=== PATIENT | male | born 1955 | race Caucasian/White ===

== ENCOUNTER → 2020-04-12 12:08 | Outpatient (CLI) | payer MEDICARE, SELFPAY ==
[2020-04-12 12:25] LABS: Basophils % 0.8 % (0.1-2.0); Eosinophils # 0.1 K/mm3 (0.0-0.4); Eosinophils % 2.2 % (0.1-12.0); Hematocrit 42.6 % (42.0-52.0); Lymphocytes # 1.1 K/mm3 (0.7-4.5); Lymphocytes % 21.5 % (10-50); Mean Corpuscular HGB Conc 35.3 g/dL (31.8-35.4); Mean Corpuscular Hemoglobin 31.5 pg (27.0-31.2); Mean Corpuscular Volume 89.2 fl (80-94); Mean Platelet Volume 8.2 fl (7.4-10.4); Monocytes # 0.3 K/mm3 (0.1-1.0); Monocytes % 6.3 % (1.7-9.3); Neutrophils # 3.4 K/mm3 (1.8-7.8); Neutrophils % 69.3 % (37.0-80.0); Platelet Count 152 K/mm3 (142-424); Red Blood Count 4.77 M/mm3 (4.60-6.20); Red Cell Distribution Width 13.7 % (11.5-17.5)
[2020-04-12 13:22] LABS: Alanine Aminotransferase 44 U/L (12-78); Albumin Level 4.3 g/dl (3.5-5.0); Albumin/Globulin Ratio 1.7 (1.1-1.8); Alkaline Phosphatase 84 U/L (38-126); Anion Gap 14.3 mEq/L (5-15); Aspartate Amino Transferase 39 U/L (17-59); Bilirubin,Total 0.5 mg/dl (0.2-1.3); Blood Urea Nitrogen 17 mg/dl (9-20); Calcium 9.7 mg/dl (8.4-10.2); Carbon Dioxide 30 mmol/L (22.0-30.0); Chloride 100 mmol/L (98-107); Estimated Glomerular Filt Rate 97 ml/min (>60); GFR (African American) 117 ML/MIN (>60); Globulin 2.6 g/dL (1.3-3.2); Glucose 132 mg/dl (74-100); Potassium 3.3 mmoL/L (3.5-5.1); Sodium 141 mmol/L (136-145); Total Protein,Serum 6.9 g/dl (6.3-8.2)
[2020-04-12 13:27] LABS: C-Reactive Protein 1.6 mg/L (0-4)
[2020-04-12 13:34] LABS: Intact Parathyroid Hormone 52.8 pg/mL (7.5-53.5)
[2020-04-12 13:38] LABS: 25-OH Vitamin D, Total 25.1 ng/mL (30-100)
[2020-04-12 13:39] LABS: Erythrocyte Sedimentation Rate 19 mm/hr (0-20)
[2020-04-12 13:53] LABS: Thyroid Stimulating Hormone 1.46 uIU/mL (0.465-4.68)
== END ==
PROVIDERS: Visit Provider Internal Medicine
DX: E83.52 Hypercalcemia (principal); E55.9 Vitamin D deficiency, unspecified; L40.9 Psoriasis, unspecified; M19.049 Primary osteoarthritis, unspecified hand
CPT/HCPCS: 36415; 80053; 82306; 83970; 84443; 85025; 85651; 86140

== ENCOUNTER → 2020-12-04 14:20 | Outpatient (CLI) | payer OTHER, SELFPAY ==
--- NOTE | 2020-12-04 14:29 | XR_ITS ---
PROCEDURE: XR CHEST 2V CLINICAL HISTORY: COUGH COMPARISON: No exams were available for comparison FINDINGS: The cardiomediastinal silhouette and pulmonary vascularity are within normal limits. The lungs are clear without infiltrates, suspicious nodules, or pleural effusions. Minimal fibrotic changes are present in the right midlung versus thickening of the minor fissure. Calcified nodes are present in the subcarinal region. There are mild degenerative changes in the thoracic. There is a bone plate over lower cervical spine. IMPRESSION: No acute findings. Dictated by: Brice Haji MD 12/05/2020 13:14 Brice Haji MD in [place] 12/05/2020 13:14
== END ==
PROVIDERS: PCP Family Medicine; Visit Provider Family Medicine
DX: R05 Cough (principal)
CPT/HCPCS: 71046

== ENCOUNTER → 2021-10-08 14:58 | Outpatient (CLI) | payer MEDICARE, SELFPAY ==
--- NOTE | 2021-10-08 14:58 | CT_ITS ---
FINAL REPORT TECHNIQUE: Thin section axial CT images of the facial bones and sinuses were obtained without contrast. Coronal reformatted images were also obtained.This study was performed with techniques to keep radiation doses as low as reasonably achievable, (ALARA). Individualized dose reduction techniques using automated exposure control or adjustment of mA and/or kV according to the patient''''s size were employed. CLINICAL HISTORY: sinus pain/pressure, deviated septum FINDINGS: There is no evidence of mucosal thickening. No fluid levels are identified. The ostiomeatal units have an unremarkable appearance. There is a left clarissa bullosa. There is mild leftward nasal septal deviation. No fracture or acute bony abnormality is identified. IMPRESSION: No focal abnormality identified of the sinuses. Reviewed, Interpreted and Dictated by Valentín Victor III, MD Transcribed by Yasemin Rowland Authenticated by Valentín Victor III, MD on 10/08/2021 04:47:03 PM [facility]
== END ==
PROVIDERS: PCP Family Medicine; Visit Provider Otolaryngology
DX: J34.2 Deviated nasal septum (principal)
CPT/HCPCS: 70486

== ENCOUNTER → 2021-12-11 10:10 | Outpatient (CLI) | payer MEDICARE, SELFPAY ==
[2021-12-11 10:53] LABS: Calcium 9.2 mg/dl (8.4-10.2)
[2021-12-11 11:31] LABS: Intact Parathyroid Hormone 32.4 pg/mL (7.5-53.5)
== END ==
PROVIDERS: Visit Provider Otolaryngology
DX: R89.9 Unspecified abnormal finding in specimens from other organs, systems and tissues (principal)
CPT/HCPCS: 36415; 82310; 83970

== ENCOUNTER → 2022-04-18 09:13 | Outpatient (CLI) | payer MEDICARE, SELFPAY ==
--- NOTE | 2022-04-18 | CA_ITS ---
APPROVED REPORT Exam: Exercise Treadmill Technologist: Yoselin Alvarse, Ht: 5 ft 11 in Wt: 195 lbs BSA: 2.09 m2 HR: 64 bpm BP: 140/81 mmHg Rhythm: NSR Medical History Medical History: HTN, Hyperlipidemia Medications: Aspirin,,,,, Atorvastatin,,,,, HCTZ,,,,, Flonase,,,,, TAMSALOSIN,,,,, Celecoxib,,,,, TACROLIMUS,,,,, Mometasone,,,,, Cardiac Risk Factors: HTN, Hyperlipidemia, FHX of CAD Stress Test Details Test: Mike HR Resting HR: 70 bpm Max Heart Rate (APMHR): 152.152510 bpm Max HR Achieved: 167 bpm Target HR (85% APMHR): 129.792595 bpm % of APMHR: 109.87 Recovery HR: 135 bpm BP Resting BP: 132/81 mmHg Max BP: 168/71 mmHg Recovery BP: 182.0/90.0 mmHg ECG Resting ECG: NSR Clinical Reason for Termination: Dyspnea Exercise duration: 08:00 min Highest Stage Achieved: Exercise capacity: 10.1 METs Stress ECG Conclusion During mike protocol pt walked 8 minutes, 10.1 METS. No CP noted. <2mm upsloping ST segment depression laterally that resolved quickly in recovery. Negative test. Test Summary REST . . . . . . . Sitting REST . . . . . . . Standing REST 17:33 0.0 1.2 70 . 132/ 81 . . Stage 1 01:00 10.0 1.7 91 . . . . Stage 1 02:00 10.0 1.7 96 . . . . Stage 1 03:00 10.0 1.7 96 . 142/ 80 . . Stage 2 01:00 12.0 2.5 140 . . . . Stage 2 02:00 12.0 2.5 121 . . . . Stage 2 03:00 12.0 2.5 126 . 159/ 85 . . Stage 3 01:00 14.0 3.4 155 . . . . Stage 3 02:00 14.0 3.4 156 . . . Stop exercise at 08:00 RECOVERY 01:00 0.0 0.0 124 . . . . RECOVERY 02:00 0.0 0.0 101 . . . . RECOVERY 03:00 0.0 0.0 96 . 168/ 71 . . RECOVERY 04:00 0.0 0.0 93 . 168/ 71 . . RECOVERY 05:00 0.0 0.0 86 . 168/ 71 . . RECOVERY 06:00 0.0 0.0 89 . 168/ 71 . . RECOVERY 07:00 0.0 0.0 0 . 168/ 71 . . RECOVERY 07:05 0.0 0.0 0 . 168/ 71 . . Electronically signed by : Joel Fontana MD 04/18/2022 14:53:05
== END ==
PROVIDERS: PCP Family Medicine; Visit Provider Family Medicine
DX: R06.02 Shortness of breath (principal)
CPT/HCPCS: 93017

== ENCOUNTER 2023-06-15 16:44 | Observation (INO) | payer MEDICARE, SELFPAY ==
[2023-06-15] VITALS (8 sets, daily range): BP systolic 118–140; BP diastolic 68–91; PULSE 62–92; RESP 14–20; TEMP 36.7–37.1; O2SAT 94–98; BMI 24.4; BMI 24.1
--- NOTE | 2023-06-15 17:14 | ECG_ITS ---
APPROVED REPORT Exam: Resting ECG HR:81 bpm ECG Measurements Heart Rate 81 AXES VA 192 P 67 QRSd 102 QRS 48 QT 389 T 74 QTc 426 Conclusion SINUS RHYTHM SEPTAL MYOCARDIAL INFARCTION , PROBABLY OLD [40+ ms Q WAVE IN V1/V2] ABNORMAL ECG UNCONFIRMED REPORT Electronically signed by : Joel Fontana MD 06/16/2023 20:03:32
--- NOTE | 2023-06-15 17:48 | CT_ITS ---
PROCEDURE INFORMATION: Exam: CT Cervical Spine Without Contrast Exam date and time: 06/15/2023 6:19 PM Age: 67 years old Clinical indication: Other: Syncope and fall TECHNIQUE: Imaging protocol: Computed tomography of the cervical spine without contrast. Radiation optimization: All CT scans at this facility use at least one of these dose optimization techniques: automated exposure control; mA and/or kV adjustment per patient size (includes targeted exams where dose is matched to clinical indication); or iterative reconstruction. REPORTING DATA: Count of CT and Cardiac NM exams in prior 12 months: This patient has received 0 known CTs and 0 known cardiac nuclear medicine studies in the 12 months prior to the current study. COMPARISON: CT HEAD/BRAIN WO CON 15/06/2023 18:16 FINDINGS: Bones/joints: Anterior fusion of C6-C7. Relatively severe bilateral neural foraminal stenosis at C5-C6. Multilevel degenerative changes of the cervical spine producing multiple levels of mild and moderate spinal canal stenosis. Lungs: Lung apices are normal. Soft tissues: Unremarkable. IMPRESSION: No acute fracture or malalignment of the cervical spine.
--- NOTE | 2023-06-15 17:48 | CT_ITS ---
PROCEDURE INFORMATION: Exam: CT Head Without Contrast Exam date and time: 06/15/2023 6:16 PM Age: 67 years old Clinical indication: Syncope and collapse TECHNIQUE: Imaging protocol: Computed tomography of the head without contrast. Radiation optimization: All CT scans at this facility use at least one of these dose optimization techniques: automated exposure control; mA and/or kV adjustment per patient size (includes targeted exams where dose is matched to clinical indication); or iterative reconstruction. REPORTING DATA: Count of CT and Cardiac NM exams in prior 12 months: This patient has received 0 known CTs and 0 known cardiac nuclear medicine studies in the 12 months prior to the current study. COMPARISON: No relevant prior studies available. FINDINGS: Brain: Normal. No hemorrhage. Unremarkable white matter. No mass effect. Cerebral ventricles: No ventriculomegaly. Paranasal sinuses: Visualized sinuses are unremarkable. No fluid levels. Mastoid air cells: Visualized mastoid air cells are well aerated. Bones/joints: Unremarkable. No acute fracture. Soft tissues: Hematoma overlying the left parietal bone. IMPRESSION: No acute intracranial findings.
[2023-06-15 17:58] LABS: Basophils % 0.3 % (0.1-2.0); Eosinophils % 0.4 % (0.1-12.0); Hematocrit 44.7 % (42.0-52.0); Lymphocytes # 0.9 K/mm3 (0.7-4.5); Lymphocytes % 9.7 % (10-50); Mean Corpuscular HGB Conc 33.6 g/dL (31.8-35.4); Mean Corpuscular Hemoglobin 30.4 pg (27.0-31.2); Mean Corpuscular Volume 90.6 fl (80-94); Monocytes # 0.5 K/mm3 (0.1-1.0); Monocytes % 6.1 % (1.7-9.3); Neutrophils # 7.4 K/mm3 (1.8-7.8); Neutrophils % 83.4 % (37.0-80.0); Platelet Count 135 K/mm3 (142-424); Red Blood Count 4.93 M/mm3 (4.60-6.20); Red Cell Distribution Width 13.9 % (11.5-17.5); White Blood Count 8.8 K/mm3 (4.8-10.8)
[2023-06-15 18:02] LABS: Chloride 103 mmol/L (98-107); Sodium 141 mmol/L (136-145)
[2023-06-15 18:05] LABS: Alanine Aminotransferase 30 U/L (12-78); Albumin/Globulin Ratio 1.7 (1.1-1.8); Alkaline Phosphatase 69 U/L (38-126); Aspartate Amino Transferase 38 U/L (17-59); Bilirubin,Total 1.1 mg/dl (0.2-1.3); Blood Urea Nitrogen 17 mg/dl (9-20); Carbon Dioxide 32 mmol/L (22.0-30.0); Creatinine Clearance Estimated 78 mL/min (50-200); Estimated Glomerular Filt Rate 84 ml/min (>60); GFR (African American) 101 ML/MIN (>60); Globulin 2.4 g/dL (1.3-3.2); Glucose 144 mg/dl (74-100); Total Protein,Serum 6.4 g/dl (6.3-8.2)
[2023-06-15 18:08] LABS: Potassium 2.5 mmoL/L (3.5-5.1)
[2023-06-15 18:09] LABS: Anion Gap 8.5 mEq/L (5-15)
--- NOTE | 2023-06-15 18:09 | PC.NURSE ---
Dr. Duffy notified of critical potassium of 2.5
--- NOTE | 2023-06-15 18:12 | PC.NURSE ---
PT TO CT
--- NOTE | 2023-06-15 18:56 | HMH.EDGENADL ---
Discharge Plan Disposition Patient Disposition: Home, Self-Care Chief Complaint: Syncope Prescriptions Prescriptions: No Action atorvastatin 40 mg tablet PO 90 Days Qty: 90 Patient Comments: TAKE 1 TABLET BY MOUTH EVERYDAY AT BEDTIME aspirin [Adult Low Dose Aspirin] 81 mg tablet,delayed release (DR/EC) 81 mg PO DAILY fluticasone propionate [Flonase Allergy Relief] 50 mcg/actuation spray,suspension 1 spray INTRANASAL DAILY hydrochlorothiazide 25 mg tablet PO Patient Comments: TAKE 1 TABLET BY MOUTH EVERY DAY tamsulosin 0.4 mg capsule PO celecoxib 200 mg capsule 200 mg PO DAILY tacrolimus 0.1 % ointment TOPICAL mometasone 0.1 % cream 1 applic TOPICAL DAILY Referrals Follow up/Referrals: Nash Andrews [Primary Care Provider] - See instructions Clinical Impressions Clinical Impression: Syncope, Acute hypokalemia Discharge ED Provider: Jalen Duffy General Adult HPI General Chief complaint: Syncope Stated complaint: AO 06/15@1530 FELL hIT HEAD Time Seen by Provider: 06/15/23 17:46 Mode of Arrival: Ambulatory Limitations: No Limitations Description of Symptoms (Recalled from ER Triage Doc. by RN): PT WITH SYNCOPE WHILE WORKING OUTSIDE ABOUT [phone] TODAY. RAISED AREA TO BACK OF HEAD. PT DENIES NECK PAIN, NO BLOOD THINNERS History of Present Illness HPI narrative: Patient is 67-year-old male with past medical history of hypertension who presents emergency department for evaluation of syncope. Patient was taken a fence post all day when he leaned forward towards the ground and had an episode of syncope. Patient suffered trauma to the back of his head. No other acute complaints at this time. Denies blood thinners. Patient also has a history of disequilibrium that is currently being evaluated by ENT. Related Data Home Medications Medication Instructions Recorded Confirmed aspirin 81 mg tablet,delayed 81 mg PO DAILY 11/05/18 09/24/21 release (Adult Low Dose Aspirin) atorvastatin 40 mg tablet PO 90 days #90 tabs 11/05/18 09/24/21 fluticasone propionate 50 1 spray intranasal DAILY 11/05/18 09/24/21 mcg/actuation nasal spray,suspension (Flonase Allergy Relief) hydrochlorothiazide 25 mg tablet PO 09/20/19 09/24/21 celecoxib 200 mg capsule 200 mg PO DAILY 09/24/21 09/24/21 mometasone 0.1 % topical cream 1 applic topical DAILY 09/24/21 09/24/21 tacrolimus 0.1 % topical ointment topical 09/24/21 09/24/21 tamsulosin 0.4 mg capsule mg PO 09/24/21 09/24/21 Allergies Allergy/AdvReac Type Severity Reaction Status Date / Time oxycodone [From OxyContin] Allergy Mild itch Verified 09/24/21 13:06 [facility] Disclaimer: The information contained in this section may have been updated after the patient was seen, as this information can be updated by other users. Social History Smoking Status: Former smoker alcohol intake: never current occupational status: retired Travel in the last 8 weeks: None household members: family housing: house ROS Obtained: Yes Systems reviewed as appropriate & no additional complaints except as documented Physical Exam General General appearance: alert and in no apparent distress Head Head exam: normocephalic and other (Small hematoma posterior scalp) Eye Eye exam: Present PERRL and EOMI ENT ENT exam: Present mucous membranes moist Neck Neck exam: Present normal inspection Chest Chest inspection: Present normal inspection and symmetric chest wall rise Respiratory Respiratory exam: Present normal lung sounds bilaterally; Absent respiratory distress Cardiovascular Cardiovascular exam: Present regular rate and normal rhythm Abdominal Exam Abdominal exam: Present soft Extremities Exam Extremities exam: Present normal inspection Neurological Exam Neurological exam: Present alert and CN II-XII intact; Absent motor sensory deficit Psychiatric Psychiatric exam: Present normal a
--- NOTE | 2023-06-15 20:12 | PC.NURSE ---
Gave report to BOBBY Marie on second floor at this time.
--- NOTE | 2023-06-15 20:38 | PC.NURSE ---
spoke with Heydi on Med/Surg, she states techs are on their way.
--- NOTE | 2023-06-15 20:46 | PC.NURSE ---
pt arrived to floor via wheelchair @20:45
--- NOTE | 2023-06-15 20:49 | EXP.HP ---
History of Present Illness *Admission Date: 06/15/23 *Reason for visit:: syncope *History of present illness: This is a 67-year-old male with past medical history of hypertension, chronic sinus allergies, with frequent infection, that had been followed with ENT specialist; who presented to emergency department for evaluation of syncope. Patient was taken a fence post all day when he leaned forward towards the ground and had an episode of syncope. Patient suffered trauma to the back of his head. Patient also has history of hearing loss, vertigo and tinnitus. No other acute complaints at this time. Denies blood thinners. Admitted for observation. [facility] Disclaimer: The information contained in this section may have been updated after the patient was seen, as this information can be updated by other users. Medical History (Updated 06/15/23 @ 23:52 by Trung Powell APRN) Asthma Family History (Updated 06/15/23 @ 21:33 by Viridiana Junior RN) Other No significant family history Social History (Updated 06/15/23 @ 21:34 by Viridiana Junior RN) Smoking Status: Former smoker alcohol intake: never current occupational status: retired Travel in the last 8 weeks: None household members: family housing: house Review of Systems Review of Systems Review of systems:: pertinent systems reviewed and negative unless documented below Meds Home Medications and Allergies Home Medications Medication Instructions Recorded Confirmed Type aspirin 81 mg tablet,delayed 81 mg PO DAILY 11/05/18 09/24/21 History release (Adult Low Dose Aspirin) atorvastatin 40 mg tablet PO 90 days #90 tabs 11/05/18 09/24/21 History fluticasone propionate 50 1 spray intranasal DAILY 11/05/18 09/24/21 History mcg/actuation nasal spray,suspension (Flonase Allergy Relief) hydrochlorothiazide 25 mg tablet PO 09/20/19 09/24/21 History celecoxib 200 mg capsule 200 mg PO DAILY 09/24/21 09/24/21 History mometasone 0.1 % topical cream 1 applic topical DAILY 09/24/21 09/24/21 History tacrolimus 0.1 % topical ointment topical 09/24/21 09/24/21 History tamsulosin 0.4 mg capsule 0.4 mg PO DAILY prostate 09/24/21 09/24/21 History albuterol sulfate 90 mcg/actuation 2 puff inhalation NEEDED PRN SOA 06/15/23 06/15/23 History aerosol inhaler finasteride 5 mg tablet 5 mg PO DAILY prostate 06/15/23 06/15/23 History fluticasone furoate 100 1 inh inhalation DAILY Asthma 06/15/23 06/15/23 History mcg-vilanterol 25 mcg/dose inhalation powder (Breo Ellipta) New Prescriptions to Start Prescriptions: Allergies Allergy/AdvReac Type Severity Reaction Status Date / Time oxycodone [From OxyContin] Allergy Mild itch Verified 09/24/21 13:06 Exam Data for Last 24 hours Vital signs and Labs for Last 24 Hours: Temp Pulse Resp BP Pulse Ox O2 Del Method 98.8 F 72 20 128/78 95 Room Air 06/15/23 20:31 06/15/23 20:31 06/15/23 20:31 06/15/23 20:31 06/15/23 20:10 06/15/23 20:31 Laboratory Results - last 24 hr 06/15/23 17:30: WBC 8.8, RBC 4.93, Hgb 15.0, Hct 44.7, MCV 90.6, MCH 30.4, MCHC 33.6, RDW 13.9, Plt Count 135 L, MPV 9.0, Neut % (Auto) 83.4 H, Lymph % (Auto) 9.7 L, [place] % (Auto) 6.1, Eos % (Auto) 0.4, Baso % (Auto) 0.3, Neut # (Auto) 7.4, Lymph # (Auto) 0.9, [place] # (Auto) 0.5, Eos # (Auto) 0.0, Baso # (Auto) 0.0, Sodium 141, Potassium 2.5 L*, Chloride 103, Carbon Dioxide 32 H, Anion Gap 8.5, BUN 17, Creatinine 0.90, Estimated Creat Clear 78, Estimated GFR 84, Est GFR ( Amer) 101, Glucose 144 H, Calcium 9.0, Total Bilirubin 1.1, AST 38, ALT 30, Alkaline Phosphatase 69, Total Protein 6.4, Albumin 4.0, Globulin 2.4, Albumin/Globulin Ratio 1.7 I & O for Last 24 hours: Intake & Output 06/12/23 06/13/23 06/14/23 06/15/23 23:59 23:59 23:59 23:59 Weight 79.379 kg Constitutional Constitutional: mild distress and cooperative *Routine HEENT Exam Head: Present normocephalic and atraumatic Eye: Pre
[2023-06-16] VITALS: BP 116/60; PULSE 60; PULSE 64; RESP 16; TEMP 36.6; O2SAT 94
[2023-06-16 04:00] VITALS: BP 120/64; PULSE 60; PULSE 65; RESP 14; TEMP 36.8; O2SAT 96; BMI 24.1
[2023-06-16 07:06] LABS: Basophils % 0.5 % (0.1-2.0); Eosinophils # 0.1 K/mm3 (0.0-0.4); Hematocrit 44.8 % (42.0-52.0); Hemoglobin 14.9 g/dL (14.1-18.0); Lymphocytes # 1.6 K/mm3 (0.7-4.5); Lymphocytes % 23.8 % (10-50); Mean Corpuscular HGB Conc 33.2 g/dL (31.8-35.4); Mean Corpuscular Hemoglobin 30.2 pg (27.0-31.2); Mean Corpuscular Volume 90.9 fl (80-94); Mean Platelet Volume 8.7 fl (7.4-10.4); Monocytes # 0.5 K/mm3 (0.1-1.0); Monocytes % 7.9 % (1.7-9.3); Neutrophils # 4.4 K/mm3 (1.8-7.8); Neutrophils % 66.8 % (37.0-80.0); Platelet Count 133 K/mm3 (142-424); Red Blood Count 4.93 M/mm3 (4.60-6.20); Red Cell Distribution Width 13.8 % (11.5-17.5); White Blood Count 6.6 K/mm3 (4.8-10.8)
[2023-06-16 07:18] LABS: Alanine Aminotransferase 24 U/L (12-78); Albumin Level 3.8 g/dl (3.5-5.0); Albumin/Globulin Ratio 1.7 (1.1-1.8); Alkaline Phosphatase 64 U/L (38-126); Anion Gap 8.4 mEq/L (5-15); Aspartate Amino Transferase 32 U/L (17-59); Bilirubin,Total 1.3 mg/dl (0.2-1.3); Blood Urea Nitrogen 13 mg/dl (9-20); Calcium 8.6 mg/dl (8.4-10.2); Carbon Dioxide 30 mmol/L (22.0-30.0); Chloride 105 mmol/L (98-107); Creatinine Clearance Estimated 77 mL/min (50-200); Estimated Glomerular Filt Rate 96 ml/min (>60); GFR (African American) 116 ML/MIN (>60); Globulin 2.3 g/dL (1.3-3.2); Glucose 102 mg/dl (74-100); Magnesium 1.9 mg/dl (1.6-2.3); Potassium 3.4 mmoL/L (3.5-5.1); Sodium 140 mmol/L (136-145); Total Protein,Serum 6.1 g/dl (6.3-8.2)
[2023-06-16 07:59] VITALS: BP 133/73; PULSE 76; RESP 18; TEMP 36.9; O2SAT 96
--- NOTE | 2023-06-16 08:21 | HMH.PHAINT1 ---
Pharmacy Intervention Comments: MEDICATION RECONCILIATION COMPLETED ON PATIENT USING EXTERNAL FILL HISTORY FROM PHARMACY. -TYRELL MESSER, JUAND
--- NOTE | 2023-06-16 09:54 | CA_ITS ---
FINAL REPORT TECHNIQUE: Color Doppler, duplex Doppler and gardner scale sonography of the bilateral neck arterial vasculature was performed. Velocities were measured in the carotid arteries. Stenosis evaluation based on the validated velocity criteria. CLINICAL HISTORY: syncope FINDINGS: The peak systolic velocity of the right common carotid artery is 110 cm/s. The peak systolic velocity of the right internal carotid artery is 99 cm/s and end diastolic velocity 40 cm/s. No plaque is present. The right external carotid artery is patent. The right vertebral artery is patent with antegrade flow. The peak systolic velocity of the left common carotid artery is 107 cm/s. The peak systolic velocity of the left internal carotid artery is 106 cm/s and end diastolic velocity 43 cm/s. No plaque is present. The left external carotid artery is patent.The left vertebral artery is patent with antegrade flow. IMPRESSION: Less than 50% bilateral carotid stenoses. Bilateral patent vertebral arteries with antegrade flow. If indicated, CTA or MRA could further evaluate. Reviewed, Interpreted and Dictated by Muna Christiansen MD Transcribed by Neetu Laurent Authenticated and [facility]
--- NOTE | 2023-06-16 09:55 | CA_ITS ---
APPROVED REPORT EXAM: Comprehensive 2D, Doppler, and color-flow Echocardiogram Lead Cytogenetic Technologist: Marielle Oneill CRT Ht: 5 ft 10 in Wt: 172lbs BSA: 1.96 BP: 128/78 mmHg Indications: Syncope, Hyperlipidemia, Hypertension/HDD, Meniere's disease 2D Dimensions LVOT 1.70 cm (M/F) 1.5-2.5 M-Mode Dimensions RVDd 2.60 cm (0.9-2.6) LA Diam 3.40 cm (1.9-4.0) LVDd 5.20 cm (3.5-5.7) Ao Diam 3.70 cm (2.0-3.7) LVDs 3.30 cm (3.5-5.7) AV Cusp 1.90 cm (1.5-2.6) IVSd 1.30 cm (0.6-1.1) PWd 0.70 cm (0.6-1.1) EF (Teich) 66.10% FS 36.50% EDV (Teich) 130.00 mL ESV (Teich) 44.10 mL LV Diastology E/A Ratio 1.20 MED E' 8.77 (< 7 cm/sec) MED A' 8.87 cm/s E'/MED E' Ratio 8.80 (>14) LAT E' 10.30 (<10 cm/sec) LAT A' 12.70 cm/s E/LAT E' Ratio 7.50 (>14) Aortic Valve AoV Peak Dustin. 138.00 (50-130 cm/s) AO Peak GR. 8.00 mmHg Mitral Valve MV E Max Dustin. 77.00 (40-130 cm/s) MV A Velocity 65.60 (40-130 cm/s) E/A Ratio 1.20 Pulmonary Valve AL End VMAX 183.00 cm/s PA Accel Time 120.00 (>120 msec) Tricuspid Valve TR P. Velocity 221.00 cm/s RAP Estimate 10.00 mmHg RVSP 30.00 mmHg Left Ventricle The left ventricle is normal size. The left ventricular systolic function is normal. The left ventricular ejection fraction is within the normal range. There is normal left ventricular wall thickness. There is normal LV segmental wall motion. The left ventricular diastolic function is normal. LVEF is 60%. Right Ventricle The right ventricle is normal size. The right ventricular systolic function is normal. Atria The left atrium size is normal. The right atrium size is normal. There is no Doppler evidence of interatrial shunt. Aortic Valve The aortic valve is mildly thickened. There is no aortic valvular stenosis. Trace aortic regurgitation. Mitral Valve Mild mitral annular calcification. The mitral valve is mildly thickened. No evidence of mitral valve stenosis. Trace mitral regurgitation. Tricuspid Valve The tricuspid valve leaflets are thin and pliable. Mild to moderate tricuspid regurgitation. RVSP is 20-25 mmHg. Pulmonic Valve The pulmonary valve is normal in structure. Trace pulmonic regurgitation. Great Vessels The aortic root is normal in size. The ascending aorta is not well visualized. IVC is normal in size and collapses >50% with inspiration. Pericardium There is no pericardial effusion. Other Information Study Quality: Fair Conclusion Normal biventricular systolic function. No significant valvular stenosis or regurgitation. Electronically signed by : Trina Waldron MD 06/16/2023 19:07:16
--- NOTE | 2023-06-16 12:53 | EXP.DC.SUM ---
General Admission date:: 06/15/23 Discharge date: 06/16/23 HPI HPI HPI: This is a 67-year-old male with past medical history of hypertension, chronic sinus allergies, with frequent infection, that had been followed with ENT specialist (ISAURA Andersen); who presented to emergency department for evaluation of single syncope episode prior to arrival. Patient was digging a fence post all day when he leaned forward towards the ground and had an episode of syncope. He awoke spontaneously. There was no witness seizure. He denied loss of bowel or bladder control. He denied confusion. He denied unusual headaches, visual disturbances, chest pain or palpitations. He experienced a contusion to his occipital scalp. Patient also has history of hearing loss, vertigo and tinnitus. He is chronically prescribed dual alpha-andriy therapy for his prostate. He takes a thiazide diuretic for his blood pressure. He does not take blood thinners. In the ED his potassium was 2.5 with a normal sodium and creatinine. Admitted for observation. Hospital Course Hospital Course Hospital Course: The patient was admitted to the telemetry unit with no arrhythmias identified. He was provided with fluid resuscitation and potassium supplementation with improved potassium on discharge. He underwent echocardiogram and carotid Dopplers with reports pending at the time of discharge. Orthostatic blood pressures were evaluated with normal findings. The patient experienced no further syncopal episodes or neurological changes through out his hospital stay. He identified improvement and inquired about discharge home. We will discharge home to follow-up with his PCP next week. We have encouraged him to follow-up on his echo and carotid Doppler reports. He understands to continue taking a baby aspirin daily and avoiding further thiazide diuretic therapy until follow-up with his PCP. We recommend daily adequate hydration and converting blood pressure medication to ARB therapy. He understands the importance of checking his blood pressure daily and recording for his follow-up with his PCP. I spent 35 minutes in [id number] time with the patient and nursing staff (Bernadette ROSALES) concerning the discharge process. We discussed the admitting diagnoses and hospital course. We discussed identified improvement and the patient's desire to be discharged. We reviewed inpatient studies and imaging reports are pending. The patient voiced understanding on the importance of follow-up with his primary care provider and imaging reports. The patient plans to be compliant with the medication regimen prescribed and follow-up appointments. He understands that he can return to the emergency department with any sudden changes or concerns. Exam Data for Last 24 hours Vital signs and Labs for Last 24 Hours: Temp Pulse Resp BP Pulse Ox O2 Del Method 98.4 F 76 18 133/73 96 Room Air 06/16/23 07:59 06/16/23 07:59 06/16/23 07:59 06/16/23 07:59 06/16/23 07:59 06/16/23 11:00 Laboratory Results - last 24 hr 06/15/23 17:30: WBC 8.8, RBC 4.93, Hgb 15.0, Hct 44.7, MCV 90.6, MCH 30.4, MCHC 33.6, RDW 13.9, Plt Count 135 L, MPV 9.0, Neut % (Auto) 83.4 H, Lymph % (Auto) 9.7 L, [place] % (Auto) 6.1, Eos % (Auto) 0.4, Baso % (Auto) 0.3, Neut # (Auto) 7.4, Lymph # (Auto) 0.9, [place] # (Auto) 0.5, Eos # (Auto) 0.0, Baso # (Auto) 0.0, Sodium 141, Potassium 2.5 L*, Chloride 103, Carbon Dioxide 32 H, Anion Gap 8.5, BUN 17, Creatinine 0.90, Estimated Creat Clear 78, Estimated GFR 84, Est GFR ( Amer) 101, Glucose 144 H, Calcium 9.0, Total Bilirubin 1.1, AST 38, ALT 30, Alkaline Phosphatase 69, Total Protein 6.4, Albumin 4.0, Globulin 2.4, Albumin/Globulin Ratio 1.7 06/16/23 06:20: WBC 6.6, RBC 4.93, Hgb 14.9, Hct 44.8, MCV 90.9, MCH 30.2, MCHC 33.2, RDW 13.8, Plt Count 133 L, MPV 8.7, Neut % (Auto) 66.8, Lymph % (Auto) 23.8, [place] % (Auto) 7.9, Eos % (Auto) 1.0, Baso % (Auto) 0.5, Neut # (Auto) 4.4, Lymph # (A
--- NOTE | 2023-06-17 13:41 | CARE MANAGER ---
Spoke with patient related to hospital discharge. He states he feels better and did stop his HCTZ. He is aware of his follow up appointment. Denies any questions or concerns. BOBBY Wright
== END 2023-06-16 14:00 | disposition home or self-care (01) ==
LOC: ER 19:55 → 2ND 20:03
PROVIDERS: Nurse Practitioner Family; Admitting Provider Internal Medicine Adolescent Medicine; Emergency Provider Emergency Medicine; PCP Family Medicine; Visit Provider Internal Medicine Adolescent Medicine
DX: E87.6 Hypokalemia (principal); R55 Syncope and collapse; M48.02 Spinal stenosis, cervical region; H81.03 Meniere's disease, bilateral; H91.93 Unspecified hearing loss, bilateral; J45.909 Unspecified asthma, uncomplicated; I10 Essential (primary) hypertension; Z79.899 Other long term (current) drug therapy
CPT/HCPCS: 36415; 70450; 72125; 80053; 83735; 85025; 93005; 93306; 93880; 99285; G0378